=== PATIENT | female | born 1960 | race Caucasian/White ===

== ENCOUNTER → 2017-09-20 20:45 | Outpatient (CLI) | payer MEDICARE, SELFPAY | PROVIDERS: Family Provider Nurse Practitioner Family; PCP Nurse Practitioner Family; Visit Provider Nurse Practitioner Family | DX: G47.10 Hypersomnia, unspecified (principal) | CPT/HCPCS: 95810 ==

== ENCOUNTER → 2017-10-09 20:00 | Outpatient (CLI) | payer MEDICARE, SELFPAY | LOC: SL 20:16 | DX: G47.33 Obstructive sleep apnea (adult) (pediatric) (principal); G25.81 Restless legs syndrome | CPT/HCPCS: 95811 ==

== ENCOUNTER 2020-09-22 07:04 | Day surgery (SDC) | payer MEDICARE, SELFPAY ==
[2020-09-02 13:00] VITALS: BMI 28.0
[2020-09-22] VITALS (7 sets, daily range): BP systolic 135–149; BP diastolic 69–79; PULSE 52–64; RESP 16; TEMP 36.4–36.7; O2SAT 95–99; BMI 27.8
[2020-09-22] MEDS: Lactated Ringers 1,000 ML 100 ML IV (07:15)
--- NOTE | 2020-09-22 07:36 | PCM.HP.BLA ---
History and Physical Date of Service: 09/02/20 MR#:[id number]:[id number]: VLADIMIR ARANA [facility] #:[id number]:1960 Provider:Avani Rocha/Sex: 59/F [facility] Int[facility] Vital Signs 09/02/20 13:00 Height 5 ft 3 in Weight: 158 lb 4 oz BMI 28.0 BP 146/81 H Blood Pressure Location Rt brachial Position Sitting Respiration 18 Pulse 71 Pulse Source NIBP Temp 97.9 F Temp Source Temporal Pulse Oximetry (%) 97 Oxygen Delivery Method room air Intake Visit Reasons: CSCOPE, CARDIAC HX Chief Complaint: colonoscopy, history of colon polyps Resaw Carriage Operator Required: No Is patient in pain?: No Allergies amoxicillin [From Augmentin] Allergy (Mild, Verified 09/02/20 13:01) hives clavulanic acid [From Augmentin] Allergy (Mild, Verified 09/02/20 13:01) hives sulfamethoxazole [From Bactrim] Allergy (Mild, Verified 09/02/20 13:01) hives trimethoprim [From Bactrim] Allergy (Mild, Verified 09/02/20 13:01) hives Medications aspirin 81 mg tablet,delayed release 81 mg PO DAILY 09/02/20 [History Confirmed 09/02/20] bupropion HCl 150 mg tablet,12 hr sustained-release 150 mg PO DAILY ea 09/02/20 [History Confirmed 09/02/20] calcium 250 mg tablet 250 mg PO QDAY tab 09/02/20 [History Confirmed 09/02/20] calcium carbonate-vitamin D3 250 mg-125 unit tablet 1 tab PO DAILY 09/02/20 [History Confirmed 09/02/20] cholecalciferol (vitamin D3) 1,250 mcg (50,000 unit) capsule 1,250 mcg PO BID cap 09/02/20 [History Confirmed 09/02/20] famotidine 20 mg tablet 20 mg PO BID 09/02/20 [History Confirmed 09/02/20] loratadine 10 mg tablet 10 mg PO DAILY 09/02/20 [History Confirmed 09/02/20] magnesium 250 mg tablet 250 mg PO DAILY 09/02/20 [History Confirmed 09/02/20] metformin 500 mg tablet mg PO 09/02/20 [History Confirmed 09/02/20] metoprolol succinate 25 mg tablet,extended release 24 hr mg PO 09/02/20 [History Confirmed 09/02/20] paroxetine HCl 40 mg tablet mg PO 09/02/20 [History Confirmed 09/02/20] rosuvastatin 20 mg tablet mg PO 09/02/20 [History Confirmed 09/02/20] Is last menstrual period known: No Post menopausal: Yes Patient : No PFSH Medical History Anxiety and depression Back pain CAD (coronary artery disease) CHF (congestive heart failure) Congenital hearing loss Diabetes Dyslipidemia GERD (gastroesophageal reflux disease) Hemorrhoid HTN (hypertension) Myocardial infarction Neuropathy NSTEMI (non-ST elevated myocardial infarction) Sleep apnea Takotsubo cardiomyopathy Surgical History History of amputation of left thumb History of appendectomy History of cardiac catheterization History of colonoscopy (~2013) History of foot surgery History of myringotomy History of partial hysterectomy Family History (Updated 09/02/20 @ 13:00 by Audrey Danielle) Father Heart disease Myocardial infarction Seizures Hypertension Mother Diabetes CVA (cerebral vascular accident) Breast cancer Hypertension Myocardial infarction Sister Hypertension Diabetes Brother Diabetes Hypertension Social History (Updated 09/02/20 @ 13:00 by Audrey Danielle) Smoking Status: Light Smoker (<10/day) HPI HPI HPI: VLADIMIR ARANA, is a 59 F who presents to the office today with need to schedule screening colonoscopy. They are referred for surgical consultation from Dr. Garza. Patient has had prior colonoscopy she estimates 7 to 10 years ago. The results of prior scope were: Polyps, however the final pathology is unavailable given this was done at outside facility. Patient states that a recommended follow-up interval was never given. Patient has no personal history of colon cancer, inflammatory bowel disease, or diverticulitis. Patient has family history of colon cancer in 2 maternal uncles (diagnosed in their 70s). She describe their bowel habits as normal/regular. However, she does admit to a history of hemorrhoidal disease and notes occasional bright red blood with stools. During these times she experiences associated pain/itching. Patient has a moderately complex CV history. She carries diagnoses of atherosclerotic heart disease, prior [place], and CHF. She reports that she had a heart catheterization in 2018, however, she did not require stents. Her last visit with her lan/wan engineer, Dr. Bosch, was February 2020. She summarizes that they were pleased with her cardiac function at that time. Patient also has a history of obstructive sleep apnea, and endorses faithful compliance with CPAP. ROS General General: Yes fatigue; No weight change, appetite, colon cancer, breast cancer or weakness HEENT HEENT: No difficulty swallowing, eye injury, eye surgery, swollen glands or hoarseness Endo Endocrine: Yes diabetes mellitus; No thyroid disease, thyroid cancer, Hair loss, heat intolerance or cold intolerance Musc Musculoskeletal: Yes back problems; No arthritis, rheumatoid arthritis, gout or joint pain Cardio Cardiovascular: Yes high blood pressure and heart attack; No murmur, pacemaker, heart disease, atrial fibrillation, heart stent, palpitations, shortness of breat with exertion or chest pain Psych Psychiatric: Yes depression and anxiety; No hearing voices Resp Respiratory: No shortness of breath, Yes sleep apnea, No cough, No COPD, No asthma, No emphysema and No wheezing Gastro Gastrointestinal: No abdominal pain, No nausea or vomiting, No diarrhea, No constipation, Yes blood in stool, Yes acid reflux, Yes hemorrhoids, No ulcers, No gallbladder problem and No black,tarry stools [place] Hematologic: Yes blood thinners, No blood disorders, No bleeding, No anemia and No blood clots Neuro Neurologic: No weakness Exam Const General: cooperative, healthy appearing, comfortable, no acute distress and well developed Nutritional Appearance: well nourished Orientation: alert and oriented x3 HENMT Head: normocephalic and atraumatic Resp Effort & Inspection: normal respiratory effort, able to speak in complete sentences and no respiratory distress Auscultation: wheezes expiratory wheezes (Faint on left base) Cardio Rate: regular rate Rhythm: regular rhythm Heart Sounds: S1 normal and S2 normal GI Inspection: non-distended, scar (umbilical) and no visible herniation Palpation: soft, no hernias and nontender Assessment and Plan Assessment and Plan (1) Colon polyps: Status: Acute Qualifiers: Colon location: unspecified part of colon Colon polyp type: unspecified Qualified Code(s): K63.5 - Polyp of colon Plan Details Additional Comments: Patient has history of colonic polyps. She states her last surveillance endoscopy was approximately 7 to 10 years ago. She is having occasional bright red blood per rectum, however, temporally this seems related to hemorrhoid problems as she experiences concomitant pain/itching. Plan will be to complete colonoscopy on 09/22/2020 under local MAC. Pre-? procedure prep discussed and paper instructions provided. Patient is also made aware that she will need to have a electric mule driver with her the day of the procedure. 09/22/2020 I have examined the patient the following changes are noted: Patient no longer having bright red blood per rectum. She notes that her bowel prep went uneventfully and output has now been clear over the last couple bowel movements. Neither she nor her have any further questions we will plan to proceed with colonoscopy as above.
[2020-09-22 07:45] LABS: Bedside Glucose 140 mg/dL (70-110)
--- NOTE | 2020-09-22 08:15 | COLBX_PTH ---
PATIENT: VLADIMIR ARANA LOC: EN U#:[id number] AGE/SX: 59/F ROOM: RE09/22/[address]: Dr. Juan Moreau MD : 1960 BED: DIS: 09/22/2020 SPEC #: [id number] RECD: 09/22/20 11:42 STATUS: ELIZABETH VÍCTOR #: [id number] DESIREE: 09/22/20 08:[address]: Juan Moreau DEPT: SURGICAL PATHOLOGY RECD BY: Trixie Gold ENTERED: 09/22/20 12:32 SP TYPE: COLON BX OTHR DR: Moon Stockton, BOND WRITER-C [facility] Tissues: Descending colon Procedures: Surgery Specimen Level IV HEADER OPERATION: Colonoscopy (MAC) PRE-OP DIAGNOSIS: History colon polyps TISSUE SUBMITTED: Descending polyp MICROSCOPIC DIAGNOSIS Descending colon polyp, biopsy: Tubular adenoma. ALISON:jarret 09/23/2020 MICROSCOPIC DESCRIPTION Slides are reviewed. GROSS DESCRIPTION Received in fixative is one container labeled with the patient's name and designated descending polyp. The specimen consists of a samayoa-pink polyp measuring 0.5 x 0.5 x 0.3 cm. The specimen is totally submitted in one cassette. / SJ:jarret 09/22/20 TC:1 CPT: 87137
--- NOTE | 2020-09-26 09:49 | OP.CCLET_ITS ---
09/26/2020 Vivian Garza [facility] Re : [facility] This procedure was performed on September. My impressions and recommendations are as follows: Impressions : - Diverticulosis in the sigmoid colon. - One 1 mm, non-bleeding polyp in the descending colon, removed with a hot snare. Resected and retrieved. - Internal hemorrhoids. - Moderate diverticulosis in the sigmoid colon. There was no evidence of diverticular bleeding. [All Maneuvers]. Recommendations : - Discharge patient to home (ambulatory). - Resume regular diet. - Repeat colonoscopy in 5 years for adenoma surveillance. - Continue present medications. My findings are described in the full procedure note, which is enclosed. If I can be of further assistance, please feel free to contact me at Doctor phone number(s): , Work: . Sincerely, Juan Moreau MD 09/22/2020 9:46:01 AM This report has been signed electronically.
--- NOTE | 2020-09-26 09:49 | OP.COLON_ITS ---
Patient Name: Robyn Rocha Procedure Date: 09/22/2020 7:45 AM Date of : 1960 Age: 59 Procedure: Colonoscopy Indications: High risk colon cancer surveillance: Personal history of colonic polyps, Surveillance: Personal history of colonic polyps (unknown histology) on last colonoscopy more than 5 years ago Providers: Juan Moreau MD Referring MD: Vivian Garza [facility] Medicines: Monitored Anesthesia Care, See the Anesthesia note for documentation of the administered medications Patient Profile: Refer to note in patient chart for documentation of history and physical. Last Colonoscopy: 7-10 years ago. Complications: No immediate complications. Procedure: Pre-Anesthesia Assessment: - Monitored anesthesia care under the supervision of a TOP STITCHER was determined to be medically necessary for this procedure based on review of the patient's medical history, medications, and prior anesthesia history. After I obtained informed consent, the scope was passed under direct vision. Throughout the procedure, the patient's blood pressure, pulse, and oxygen saturations were monitored continuously. The colonoscope was introduced through the anus and advanced to the cecum, identified by appendiceal orifice and ileocecal valve. The colonoscopy was technically difficult and complex due to poor bowel prep. Successful completion of the procedure was aided by lavage. The colonoscopy was performed with moderate difficulty due to multiple diverticula in the colon. Successful completion of the procedure was aided by applying abdominal pressure. The colonoscopy was technically difficult and complex due to a tortuous colon. Successful completion of the procedure was aided by applying abdominal pressure. Scope In: 8:02:45 AM Scope Withdrawal Time 0 hours 32 minutes 44 seconds Scope Out: 9:24:15 AM Total Procedure Duration Time 1 hour 21 minutes 30 seconds Findings: Many medium-mouthed diverticula were found in the sigmoid colon. A 1 mm, non-bleeding polyp was found in the descending colon. The polyp was pedunculated. The polyp was removed with a hot snare. Resection and retrieval were complete. Estimated blood loss: none. Internal hemorrhoids were found during retroflexion. The hemorrhoids were Grade I (internal hemorrhoids that do not prolapse). Estimated blood loss was minimal. Impression: - Diverticulosis in the sigmoid colon. - One 1 mm, non-bleeding polyp in the descending colon, removed with a hot snare. Resected and retrieved. - Internal hemorrhoids. - Moderate diverticulosis in the sigmoid colon. There was no evidence of diverticular bleeding. [All Maneuvers]. Recommendation: - Discharge patient to home (ambulatory). - Resume regular diet. - Repeat colonoscopy in 5 years for adenoma surveillance. - Continue present medications. Procedure Code(s): --- Professional --- 30574, Colonoscopy, flexible; with removal of tumor(s), polyp(s), or other lesion(s) by snare technique Diagnosis Code(s): --- Professional --- K64.0, First degree hemorrhoids D12.4, Benign neoplasm of descending colon Z86.010, Personal history of colonic polyps K57.30, Diverticulosis of large intestine without perforation or abscess without bleeding CPT copyright 2017 [employer]. All rights reserved. The codes documented in this report are preliminary and upon skoog operator review may be revised to meet current compliance requirements. Juan Moreau MD 09/22/2020 9:46:01 AM This report has been signed electronically. Number of Addenda: 0 Note Initiated On: 09/22/2020 7:45 AM
== END 2020-09-22 10:20 ==
LOC: EN 07:04 → AC 07:08
PROVIDERS: Visit Provider Surgery
PROC: 0DJD8ZZ Inspection of Lower Intestinal Tract, Via Natural or Artificial Opening Endoscopic (ICD-10-PCS; CPT 45378; principal; 2020-09-22 08:10)
DX: D12.4 Benign neoplasm of descending colon (principal); K57.30 Diverticulosis of large intestine without perforation or abscess without bleeding; K64.0 First degree hemorrhoids; Z86.010 Personal history of colon polyps; F41.9 Anxiety disorder, unspecified; F32.9 Major depressive disorder, single episode, unspecified; I25.10 Atherosclerotic heart disease of native coronary artery without angina pectoris; I11.0 Hypertensive heart disease with heart failure; I50.9 Heart failure, unspecified; E11.9 Type 2 diabetes mellitus without complications; E78.5 Hyperlipidemia, unspecified; K21.9 Gastro-esophageal reflux disease without esophagitis; F17.200 Nicotine dependence, unspecified, uncomplicated; G47.33 Obstructive sleep apnea (adult) (pediatric); Z79.899 Other long term (current) drug therapy; Z79.84 Long term (current) use of oral hypoglycemic drugs
CPT/HCPCS: 45380; 82962; 88305; J7120; J2405

== ENCOUNTER → 2023-12-24 | Outpatient (CLI) | payer MEDICARE, SELFPAY ==
--- NOTE | 2023-12-24 13:58 | BI_ITS ---
MAMMOGRAPHY - BILATERAL SCREENING REASON FOR EXAM: Female, 62 years old. Routine annual screening examination. PERTINENT HISTORY: Mother with breast cancer. TECHNIQUE: Digital bilateral breast mark anthony (3D mammographic acquisition) in the CC and MLO projections. 2-D mediolateral oblique (MLO) and craniocaudad (CC) views of both breasts were obtained. CAD: Full Field Digital Mammography with Computer Added Detection was performed. COMPARISON: Comparison is made with prior study dated November 17, 2015 and prior outside examination of November 21, 2022. FINDINGS: Breast Composition: The breasts are heterogeneously dense, which may obscure small masses. There are no dominant masses or suspicious calcifications. Stable asymmetry of breast tissue or more breast tissue is seen in the retroareolar areolar region of the right breast as compared to the left side. No other significant abnormalities are identified. There has been no significant change since the prior study. BI/SCRN MAMM (CAD)W/MARK ANTHONY BILAT IMPRESSION: Stable bilateral screening mammogram. Yearly follow-up mammogram recommended. (A) ASSESSMENT CATEGORY: BIRADS Category 2: Benign. A letter regarding these results will be sent to the patient by the facility within 30 days. Approximately 10% of breast cancers are not detected by mammography. A normal mammogram should not delay biopsy of a clinically suspicious abnormality. [id number] Electronically Signed: Troy Villatoro MD at 14:43 EST ,
== END | disposition home or self-care (01) ==
PROVIDERS: PCP Family Medicine; Referring Provider Family Medicine; Visit Provider Family Medicine
DX: Z12.31 Encounter for screening mammogram for malignant neoplasm of breast (principal); Z80.3 Family history of malignant neoplasm of breast
CPT/HCPCS: 77063; 77067

== ENCOUNTER 2024-11-24 05:55 | Day surgery (SDC) | payer MEDICARE, SELFPAY ==
[2024-11-19 09:11] LABS: Hematocrit 40.8 % (37-47); Hemoglobin 13.5 g/dL (12.0-15.0); Immature Granulocytes Count 0.030 X10^3/uL (0.0-0.0); Mean Corp Hgb Conc 33.1 g/dL (32-36); Mean Corpuscular Volume 92.3 fL (81-99); Mean Platelet Vol. 10.1 fl (6.2-12.0); NRBC Flagged by Analyzer 0 % (0-5); Platelet Count 267 K/mm3 (150-450); RBC Distribution Width CV 11.7 % (11.6-14.6); RBC Distribution Width SD 39.7 fl (35.1-43.9); Red Blood Count 4.42 M/mm3 (4.2-5.4); White Blood Count 9.3 K/mm3 (4.4-11.0)
--- NOTE | 2024-11-19 12:40 | PAT.ANESEVAL ---
Pre-Assessment Diagnosis/Proposed Procedure Planned Operative Procedure(s): RIGHT PAROITIDECTOMY Anesthesia History Anesthesia History - potato chip maker: Anesthesia History - potato chip maker Hx Hospitalization No 11/18/24 08:44 Any Problems With Anesthesia No 11/18/24 08:44 Cholinesterase deficiency No 11/18/24 08:44 You/Your Family Experience No 11/18/24 08:44 fever (hyperthermia) with Relationship Recent Exposure to Contagious Disease Does patient have nerve No 11/18/24 08:44 stimulator Patient instructed to have device shut off --Does patient have Pacemaker or ICD? When Was Last Pacemaker Check QUESTION #4 FULL TEXT: You/Your Family Experience fever (hyperthermia) with Anesthesia Last Oral Intake Last Oral intake: Last Oral Intake NPO since Meds taken in AM with sips of water? Meds patient instructed to take am of surgery PONV PONV - potato chip maker: PONV - potato chip maker Female Yes 11/18/24 08:44 HX of Motion Sickness Yes 11/18/24 08:44 HX of N/V After Surgery No 11/18/24 08:44 Non-Smoker No 11/18/24 08:44 Duration of Surgery greater Yes 11/18/24 08:44 than 60 minutes Number of Risk Factors 3 11/18/24 08:44 PONV Score Moderate Risk 11/18/24 08:44 Height & Weight Height & Weight: Anesthesia: Height & Weight Height 5 ft 3 in 09/22/20 07:33 Respiratory Assessment Respiratory Assessment - potato chip maker: Respiratory Tract Infection Hx - potato chip maker Hx Respiratory Tract Infection No 11/18/24 08:44 STOP Sleep Apnea STOP Sleep Apnea - potato chip maker: STOP Sleep Apnea - potato chip maker Hx Hypertension Yes: CONTROLLED WITH MEDS 11/18/24 08:44 Hx Sleep Apnea Yes 11/18/24 08:44 CPAP Yes 11/18/24 08:44 BIPAP No 11/18/24 08:44 Do you snore loudly (louder than talking or can be heard Do you often feel tired/ fatigued/ sleepy during daytime? Has anyone observed you stop breathing during sleep? STOP Results Positive 11/18/24 08:44 QUESTION #5 FULL TEXT : Do you snore loudly (louder than talking or can be heard through closed doors)? Tobacco Use History Tobacco Use History - potato chip maker: Tobacco Use History - potato chip maker Tobacco Use Smoking Status Former smoker 11/18/24 08:44 Hx Tobacco Use Yes 11/18/24 08:44 Years Smoking Packs Smoked per Day Smoking Cessation Date was Yes - quit smoking within 15 11/18/24 08:44 within the last 15 years years Hx Smoking Cessation Date 11/17/24 11/18/24 08:44 Hx Smoking Cessation Counseling Hematologic Medial History Hematologic Hx - potato chip maker: Hematologic Medical Hx - tomato paste maker Hx of Blood Transfusion No 11/18/24 08:44 Hx of Transfusion in last 3 No 11/18/24 08:44 Months Date of Last Transfusion (if within last 3 months) Ever experience any problems No 11/18/24 08:44 with transfusion(s)? Specify any problems Hx of Preganancy in last 3 No 11/18/24 08:44 Months Nurse Filling Out Transfusion [id number] 11/18/24 08:44 & Questions: Date: 11/18/24 11/18/24 08:44 Time: 08:49 11/18/24 08:44 Patient unable to answer at this time (ie. confused, unrespo /Reproduction History /Reproductive History - potato chip maker: /Reproductive Hx- potato chip maker Hx Now Gestational Age (in weeks): EDC: Hx Hx Para Hx Section SAB PFSH Medical History (Updated 11/18/24 @ 08:54 by Elias Oconnor) Blackout Wears hearing aid Loss of hearing Wears dentures Wears glasses Depression Anxiety Diabetes High cholesterol Restless legs Seizures Gastric reflux Smoker CPAP (continuous positive airway pressure) dependence Sleep apnea Shortness of breath on exertion Hypertension Cardiology follow-up encounter History of heart attack Back pain Sleep apnea Hemorrhoid Anxiety and depression Myocardial infarction Diabetes CHF (congestive heart failure) GERD (gastroesophageal reflux disease) CAD (coronary artery disease) Neuropathy Dyslipidemia NSTEMI (non-ST elevated myocardial infarction) Takotsubo cardiomyopathy HTN (hypertension) Congenital hearing loss Home Medications ?Medication ?Instructions ?Recorded ?Last Taken ?Type aspirin 81 mg tablet,delayed 81 mg PO DAILY 09/02/20 11/16/24 History release bupropion HCl 150 mg tablet,12 hr 150 mg PO DAILY 09/02/20 Unknown History sustained-release calcium 250 mg (as 1 tab PO DAILY 09/02/20 Unknown History carbonate)-vitamin D3 3.125 mcg (125 unit) tablet (Oyster Shell + D3) loratadine 10 mg tablet 10 mg PO DAILY 09/02/20 Unknown History magnesium 250 mg tablet 250 mg PO DAILY 09/02/20 Unknown History metformin 500 mg tablet 500 mg PO DAILY 09/02/20 Unknown History metoprolol succinate 25 mg 25 mg PO DAILY 09/02/20 Unknown History tablet,extended release 24 hr paroxetine HCl 40 mg tablet (Paxil) 40 mg PO DAILY 09/02/20 Unknown History rosuvastatin 20 mg tablet 20 mg PO QHS 09/02/20 Unknown History amlodipine 5 mg tablet 5 mg PO DAILY 11/18/24 Unknown History carvedilol 12.5 mg tablet 12.5 mg PO BID 11/18/24 Unknown History ezetimibe 10 mg tablet 10 mg PO DAILY 11/18/24 Unknown History lisinopril 40 mg tablet 40 mg PO DAILY 11/18/24 Unknown History Allergy/AdvReac Type Severity Reaction Status Date / Time amoxicillin (From Augmentin) Allergy Mild hives Verified 11/18/24 08:40 clavulanic acid (From Allergy Mild hives Verified 11/18/24 08:40 Augmentin) sulfamethoxazole (From Allergy Mild hives Verified 11/18/24 08:40 Bactrim) trimethoprim (From Bactrim) Allergy Mild hives Verified 11/18/24 08:40 gabapentin Allergy Other Verified 11/18/24 08:40 Family History (Updated 09/02/20 @ 13:00 by Audrey Danielle) Father Heart disease Myocardial infarction Seizures Hypertension Mother Diabetes CVA (cerebral vascular accident) Breast cancer Hypertension Myocardial infarction Sister Hypertension Diabetes Brother Diabetes Hypertension Surgical History (Updated 09/21/20 @ 10:07 by Shruthi Acevedo) Hx of tympanostomy History of colonoscopy (~2013) History of partial hysterectomy History of foot surgery History of amputation of left thumb History of cardiac catheterization History of myringotomy History of appendectomy Social History (Updated 09/02/20 @ 13:00 by Audrey Danielle) Smoking Status: Former smoker Audit: Pertinent Findings Pertinent Findings Echo (EF%) pertinent findings: 04/06/2022. EF 55% ?5%. Consult pertinent findings: Cardiology office note 06/13/2024. Halie Vallejo. Takotsubo cardiomyopathy. Recovered EF. Euvolemic. Asymptomatic. Coronary artery disease in [place] artery. Mild to moderate disease. Continue risk factor modification. Hypertension. Currently suboptimal control we will recheck in 1 month. Sleep apnea. Obesity. Preop cardiovascular exam. Functional capacity greater than 4 METS. No significant coronary artery disease and preserved EF. Low risk for perioperative cardiovascular events. Proceed with planned surgery. Recommendation Anesthesia Recommendation Anesthesia recommendation: OPTIMIZED for anesthesia
[2024-11-24] VITALS (20 sets, daily range): BP systolic 102–151; BP diastolic 52–84; PULSE 51–75; RESP 12–16; TEMP 36–36.4; O2SAT 69–100; BMI 26.6
[2024-11-24] MEDS: Lactated Ringers 1,000 ML 15 ML IV (06:59)
--- NOTE | 2024-11-24 07:06 | PCM.PRE.AN2 ---
ASA Classification* ASA Classification ASA Classification: 3 Assessment & Plan Anesthesia* Anesthesia Assessment Anesthesia Assessment: Discussed sedation and/or anesthesia options, risks, benefits, and alternatives with patient/parents/legal guardian/POA. Questions invited. The patient/parents/legal guardian/POA seems to understand and agrees to proceed with anesthesia plan. Reviewed the physical assessment, medical history, allergy history and patient home medications list prior to surgery/procedure/anesthetic and documented any changes. Performed airway and anesthesia risk assessments. Anesthesia Type Anesthesia Type: General (Consider GlideScope intubation.) History Source History Obtained from:: Patient and Chart Anesthesia Focused Assessment* Temperature: 97.5 F Pulse Rate: 51 Blood Pressure: 120/52 Respiratory Rate: 16 Pulse Ox: 97 Oxygen Delivery Method: Room Air Airway Assessment Mouth opens: >3 cm Mallampati Score: IV Teeth Condition: Dentures (Patient has full dentures. 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 When Was Last Pacemaker Check QUESTION #4 FULL TEXT: You/Your Family Experience fever (hyperthermia) with Anesthesia Last Oral Intake Last Oral intake: Last Oral Intake NPO since 20:00 11/24/24 06:54 Meds taken in AM with sips of water? 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 Female Yes 11/18/24 08:44 HX of Motion Sickness Yes 11/18/24 08:44 HX of N/V After Surgery No 11/18/24 08:44 Non-Smoker No 11/18/24 08:44 Duration of Surgery greater Yes 11/18/24 08:44 than 60 minutes Number of Risk Factors 3 11/18/24 08:44 PONV Score Moderate Risk 11/18/24 08:44 Height & Weight Height & Weight: Anesthesia: Height & Weight Height 5 ft 3 in 11/24/24 06:54 Weight: 68.4 kg 11/24/24 06:54 Body Mass Index (BMI) 26.6 11/24/24 06:54 Respiratory Assessment Respiratory Assessment - excavating supervisor: Respiratory Tract Infection Hx - excavating supervisor Hx Respiratory Tract Infection No 11/18/24 08:44 STOP Sleep Apnea STOP Sleep Apnea - excavating supervisor: STOP Sleep Apnea - excavating supervisor Hx Hypertension Yes: CONTROLLED WITH MEDS 11/18/24 08:44 Hx Sleep Apnea Yes 11/18/24 08:44 CPAP Yes 11/18/24 08:44 BIPAP No 11/18/24 08:44 Do you snore loudly (louder than talking or can be heard Do you often feel tired/ fatigued/ sleepy during daytime? Has anyone observed you stop breathing during sleep? STOP Results Positive 11/18/24 08:44 QUESTION #5 FULL TEXT : Do you snore loudly (louder than talking or can be heard through closed doors)? 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 Specify any problems Hx of Preganancy in last 3 No 11/18/24 08:44 Months Nurse Filling Out Transfusion [email or web address] 11/18/24 08:44 & Questions: Date: 11/18/24 11/18/24 08:44 Time: 08:49 11/18/24 08:44 Patient unable to answer at this time (ie. 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 supervisor Hx Now Gestational Age (in weeks): EDC: Hx Hx Para Hx Section SAB Active Medications Active Medications: Current Medications Generic Name Dose Route Start Last Admin Trade Name Freq PRN Reason Stop Dose Admin Clindamycin Phosphate 900 mg in 50 mls @ 75 mls/hr 11/24/24 07:30 Cleocin IV 11/24/24 08:09 INTRAOP ONE Lactated Ringer's 1,000 mls @ 15 mls/hr 11/24/24 06:15 11/24/24 06:59 IV 15 mls/hr .Q48H PATTI Administration PFSH Medical History Blackout Wears hearing aid Loss of hearing Wears dentures Wears glasses Depression Anxiety Diabetes High cholesterol Restless legs Seizures Gastric reflux Smoker CPAP (continuous positive airway pressure) dependence Sleep apnea Shortness of breath on exertion Hypertension Cardiology follow-up encounter History of heart attack Back pain Sleep apnea Hemorrhoid Anxiety and depression Myocardial infarction Diabetes CHF (congestive heart failure) GERD (gastroesophageal reflux disease) CAD (coronary artery disease) Neuropathy Dyslipidemia NSTEMI (non-ST elevated myocardial infarction) Takotsubo cardiomyopathy HTN (hypertension) Congenital hearing loss Home Medications ?Medication ?Instructions ?Recorded ?Last Taken ?Type aspirin 81 mg tablet,delayed 81 mg PO DAILY 09/02/20 11/16/24 History release bupropion HCl 150 mg tablet,12 hr 150 mg PO DAILY 09/02/20 11/24/24 History sustained-release calcium 250 mg (as 1 tab PO DAILY 09/02/20 11/23/24 History carbonate)-vitamin D3 3.125 mcg (125 unit) tablet (Oyster Shell + D3) loratadine 10 mg tablet 10 mg PO DAILY 09/02/20 11/23/24 History magnesium 250 mg tablet 250 mg PO DAILY 09/02/20 11/23/24 History metformin 500 mg tablet 500 mg PO DAILY 09/02/20 11/23/24 History metoprolol succinate 25 mg 25 mg PO DAILY 09/02/20 11/23/24 History tablet,extended release 24 hr paroxetine HCl 40 mg tablet (Paxil) 40 mg PO DAILY 09/02/20 11/24/24 History rosuvastatin 20 mg tablet 20 mg PO QHS 09/02/20 11/23/24 History amlodipine 5 mg tablet 5 mg PO DAILY 11/18/24 11/24/24 History carvedilol 12.5 mg tablet 12.5 mg PO BID 11/18/24 11/24/24 History ezetimibe 10 mg tablet 10 mg PO DAILY 11/18/24 Unknown History lisinopril 40 mg tablet 40 mg PO DAILY 11/18/24 11/23/24 History Allergy/AdvReac Type Severity Reaction Status Date / Time amoxicillin (From Augmentin) Allergy Mild hives Verified 11/24/24 06:50 clavulanic acid (From Allergy Mild hives Verified 11/24/24 06:50 Augmentin) sulfamethoxazole (From Allergy Mild hives Verified 11/24/24 06:50 Bactrim) trimethoprim (From Bactrim) Allergy Mild hives Verified 11/24/24 06:50 gabapentin Allergy Other Verified 11/24/24 06:50 Family History Father Heart disease Myocardial infarction Seizures Hypertension Mother Diabetes CVA (cerebral vascular accident) Breast cancer Hypertension Myocardial infarction Sister Hypertension Diabetes Brother Diabetes Hypertension Surgical History Hx of tympanostomy History of colonoscopy (~2013) History of partial hysterectomy History of foot surgery History of amputation of left thumb History of cardiac catheterization History of myringotomy History of appendectomy Social History Smoking Status: Former smoker Review of Systems (Anesthesia) ROS Narrative System reviewed and no additional complaints, except as documented.
--- NOTE | 2024-11-24 07:30 | MASS_PTH ---
PATIENT: VLADIMIR ARANA LOC: [facility] [place] U#:[id number] AGE/SX: 63/F ROOM: RE11/24/[address]: Dr. Bayron Moreland MD : 1960 BED: DIS: 11/24/2024 SPEC #: [id number] RECD: 11/24/24 14:09 STATUS: ELIZABETH REIda #: [id number] DESIREE: 11/24/24 07:[address]: Bayron Moreland DEPT: SURGICAL PATHOLOGY RECD BY: Pawel Villatoro ENTERED: 11/24/24 16:21 SP TYPE: Mass OTHR DR: Dr. López Diamond, DO Tissues: A - Parotid gland, NOS Procedures: Surgery Specimen Level V HEADER OPERATION: Parotidectomy, Muscle flap, Fat graft PRE-OP DIAGNOSIS: Benign neoplasm of parotid gland TISSUE SUBMITTED: A- Right parotid mass MICROSCOPIC DIAGNOSIS A. Right parotid, mass, excision: * Warthin tumor, focally involving the surgical margin. * Three benign lymph nodes. MICROSCOPIC DESCRIPTION Slides are reviewed. GROSS DESCRIPTION A. Received in formalin labeled with the patient's name and date of . Designated as right parotid mass is a 5.5 g, 3.2 x 2.2 x 2.0 cm samayoa-pink to yellow, soft and lobulated, focally cauterized salivary gland devoid of orientation. The external surfaces are inked black. Sectioning reveals a 1.6 x 1.5 x 1.3 cm samayoa-pink, well-circumscribed, soft mass with a possible capsule, abutting the external ink. The remainder of the cut surfaces are samayoa-yellow and lobulated. Definitive lymph nodes are not identified. Entirely submitted in 8 cassettes. TN 11/24/2024 CPT:02745
--- NOTE | 2024-11-24 07:37 | DCINST_ITS ---
Discharge Instructions DC O2, CPAP, BIPAP needs Home O2 Discharge instructions: No Dressing / Incision Discharge Activity: Return to Normal Activity Dressing / Incision Call your doctor if your incision/area has: Sudden Increased Bleeding Additional Dressing/Incision Instructions:: record MARGOT output. mupirocin to incision three times daily. wear abdominal binder. Follow Up Care Please Follow Up With: Bayron Moreland MD Test Results: Test results from this visit will be discussed in further detail at your follow- up appointment, if applicable. Discharge Plan Admission Attending Provider: Bayron Moreland Primary Care Provider: López Diamond Instructions Print Language: Canadian Discharge Orders/Prescriptions Prescriptions: No Action metformin 500 mg tablet 500 mg PO DAILY bupropion HCl 150 mg tablet sustained-release 12 hr 150 mg PO DAILY aspirin 81 mg tablet,delayed release (DR/EC) 81 mg PO DAILY magnesium 250 mg tablet 250 mg PO DAILY metoprolol succinate 25 mg tablet extended release 24 hr 25 mg PO DAILY paroxetine HCl [Paxil] 40 mg tablet 40 mg PO DAILY loratadine 10 mg tablet 10 mg PO DAILY rosuvastatin 20 mg tablet 20 mg PO QHS calcium carbonate-vitamin D3 [Oyster Shell + D3] 250-125 mg-unit tablet 1 tab PO DAILY carvedilol 12.5 mg tablet 12.5 mg PO BID amlodipine 5 mg tablet 5 mg PO DAILY lisinopril 40 mg tablet 40 mg PO DAILY ezetimibe 10 mg tablet 10 mg PO DAILY Referrals / Follow Up: López Diamond DO [Primary Care Provider, Family Practice] Disposition Disposition (needs filled in before D/C Order can be placed): Home, Self Care
--- NOTE | 2024-11-24 07:42 | PCM.OPRPT ---
Operative Report (Standard) Operative Information Date of Procedure: 11/24/24 Pre-Operative Diagnosis: 1. right parotid mass 2. parotidectomy defect Post-Operative Diagnosis: 1. right parotid mass 2. parotidectomy defect Surgery/Procedure Performed: 1. right superficial parotidectomy with facial nerve dissection 2. superficial musculoaponeurotic system flap, right face 3. abdominal fat graft operating room surgical technician: Yes Insurance Follow Up Representative: Kiley Wolfe Tasks completed by first helper: Opening & closing, Harvesting grafts, Dissecting tissue, Removing tissue and Hemostasis: Electrocautery Type of Anesthesia: General RN Documented Start/Stop Times: Operation Date: 11/24/24 07:30 Case Time Into Pre-Op 11/24/24 06:08 Anesthesia Start 11/24/24 07:50 Into Room 11/24/24 07:50 Procedure Start 11/24/24 08:33 Procedure End 11/24/24 12:30 Anesthesia End 11/24/24 12:39 Out of Room 11/24/24 12:39 Into Recovery 11/24/24 12:42 Procedure Start Time: 08:30 Procedure Stop Time: 12:30 Select all DRAINS/GRAFTS/IMPLANTS that apply: Drains Drain details: 15 fr MARGOT to neck Estimated Blood Loss: 10cc Specimen collected: Yes Description of specimen(s) removed: right superficial parotid Description of surgery: on the day of the procedure, after appropriate informed consent was obtained, the patient was brought to the operating room and placed in supine position on the operating room table.? she was placed under general endotracheal anesthesia by the anesthesiologist.? the endotracheal tube was secured.? facial nerve monitoring electrodes were placed in the right face.? the neck and abdomen were prepped and draped in sterile fashion.? a right sided modified alannah incision was made with a 15 blade.? the preauricular area was dissected with a metsenbaum scissor in the subcutaneous fat plane, 4cm anterior.? the superficial musculoaponeurotic system (SMAS) was incised just anterior to the tragus and dissected out anteriorly.? the SMAS flap was developed and joined with the platysma muscle inferiorly.? the tragal pointer was dissected with an iris scissor in a submucoperichondrial plane.? the inferior portion of the parotid was dissected off of the sternocleidomastoid with the bovie.? 1cm inferior and deep to the tragal pointer, the main trunk of the facial nerve was located with a ulloa dissector.? this was confirmed many times with the nerve monitor.? the pes anserinus was located and the inferior division was dissected.? each branch was isolated and left intact. the gland was removed from an inferior to superior dissection, until the superficial gland with the tumor was removed.? hemostasis was achieved.?? a 4cm transverse incision was made in the left lower quadrant.? the subcutaneous fat was dissected with a Metzenbaum scissor and a 8cm x 4 cm fat graft was harvested.? hemostasis was achieved with the bipolar, a ary was placed and the incision was closed with 4-0 vicryl and 4-0 maxon.?? the fat graft was placed in the parotidectomy defect and sutured at numerous points using 4-0 vicryl.? the SMAS flap was closed over the fat graft with 4-0 vicryl.? a 15 albanian MARGOT drain was placed and sutured.? the incision was closed with 4-0 vicryl and 5-0 nylon. she was awoken by the anesthesiologist and transferred to the PACU in stable condition. dr kiley wolfe was scrubbed for the entirety of the procedure and was critical in its completion. Surgical Findings: see above Complications Complications: No
[2024-11-24] MEDS: Midazolam 2 MG/2 ML Syringe IV (07:50)
[2024-11-24] MEDS: Lidocaine 1% (5 ml sdv) 5 ML Vial IV (07:57)
[2024-11-24] MEDS: Lidocaine 1% /Epi 1:100 (50ml) 50 ML VIAL (08:25)
[2024-11-24] MEDS: Lactated Ringers 2,000 ML 2000 ML IV (08:50)
[2024-11-24] MEDS: Mupirocin Ointment 22gm Tube 1 APPLIC (09:32)
[2024-11-24] MEDS: fentaNYL 100 MCG/2 ML Ampul 150 MCG IV (12:29)
--- NOTE | 2024-11-24 12:53 | PCM.POST.ANE ---
Anesthesia: Postop Eval I Current Vital Signs Temperature: 97.2 F Pulse Rate: 59 Blood Pressure: 112/67 Respiratory Rate: 12 Pulse Ox: 96 Oxygen Delivery Method: Nasal Cannula Oxygen Flow Rate (L/min): 8 Assessment Airway patent: Yes Spontaneous unlabored respirations: Yes Mental status: Asleep (pt with obstructed airway on arrival to pacu . 28 fr npa placed nwith ease ) nausea: No Vomiting: No Anesthesia Complication: No Fluid Hydration Crystalloid volume administer (ml): 1,800 Total IV fluid infused: 1,800 Progress Note Anesthesia document: Postop Eval 1 completed: Yes
--- NOTE | 2024-11-24 15:12 | SUR.PREOP ---
has had nasal airway in since arrival to PACU, alert enough now to ask for drink, nasal airway removed and treva ice chips
--- NOTE | 2024-11-24 16:42 | POSTOPAN2_ITS ---
Anesthesia Postop Eval I Sum Postop Eval Completion status Anesthesia document: Postop Eval 1 completed: Yes Anesthesia Postop Eval I Summary Anesthesia Postop Eval I Summary: Anesthesia Postop Eval I: Assessment Summary Airway patent Yes 11/24/24 12:57 MARKETING SUPPORT [email or web address].[email or web address] Spontaneous unlabored Yes 11/24/24 12:57 MARKETING SUPPORT SPECIALIST.[email or web address] respirations Mental status Asleep - pt with 11/24/24 12:57 MARKETING SUPPORT SPECIALIST.[email or web address] obstructed airway on arrival to pacu . 28 fr npa placed nwith ease nausea No 11/24/24 12:57 MARKETING SUPPORT SPECIALIST.[email or web address] Vomiting No 11/24/24 12:57 MARKETING SUPPORT [email or web address].[email or web address] Anesthesia Postop Eval I: Fluid Summary Crystalloid volume administer 1,800 11/24/24 12:57 MARKETING SUPPORT SPECIALIST.[email or web address] (ml) Colloids volume administered ( ml) Blood Product volume administered (ml) Total IV fluid infused 1,800 11/24/24 12:57 MARKETING SUPPORT [email or web address].[email or web address] Anesthesia Postop Eval I: Summary Notes Anesthesia Complication No 11/24/24 12:57 MARKETING SUPPORT [email or web address].[email or web address] Anesthesia Complication Comment: Post-operative progress note Anesthesia: Postop Eval II Evaluation Mental status: Awake and Calm Pain Level: 0 nausea: No Vomiting: No Complications Anesthesia Complication: No
--- NOTE | 2024-11-24 16:42 | PCM.POSTANE2 ---
Anesthesia Postop Eval I Sum Postop Eval Completion status Anesthesia document: Postop Eval 1 completed: Yes Anesthesia Postop Eval I Summary Anesthesia Postop Eval I Summary: Anesthesia Postop Eval I: Assessment Summary Airway patent Yes 11/24/24 12:57 CD REACTOR OPERATOR [email or web address] Spontaneous unlabored Yes 11/24/24 12:57 CD REACTOR OPERATOR [email or web address] respirations Mental status Asleep - pt with 11/24/24 12:57 CD REACTOR OPERATOR [email or web address] obstructed airway on arrival to pacu . 28 fr npa placed nwith ease nausea No 11/24/24 12:57 CD REACTOR OPERATOR HEAD.[email or web address] Vomiting No 11/24/24 12:57 CD REACTOR OPERATOR [email or web address] Anesthesia Postop Eval I: Fluid Summary Crystalloid volume administer 1,800 11/24/24 12:57 CD REACTOR OPERATOR [email or web address] (ml) Colloids volume administered ( ml) Blood Product volume administered (ml) Total IV fluid infused 1,800 11/24/24 12:57 CD REACTOR OPERATOR [email or web address] Anesthesia Postop Eval I: Summary Notes Anesthesia Complication No 11/24/24 12:57 CD REACTOR OPERATOR HEAD.[email or web address] Anesthesia Complication Comment: Post-operative progress note Anesthesia: Postop Eval II Evaluation Mental status: Awake and Calm Pain Level: 0 nausea: No Vomiting: No Complications Anesthesia Complication: No
== END 2024-11-24 16:38 | disposition home or self-care (01) ==
LOC: SDC 05:55 → AC 05:56
PROVIDERS: PCP Family Medicine; Referring Provider Otolaryngology; Visit Provider Otolaryngology
PROC: (CPT 42415; principal; 2024-11-24 07:00)
DX: D11.0 Benign neoplasm of parotid gland (principal); E11.9 Type 2 diabetes mellitus without complications; I10 Essential (primary) hypertension; E78.00 Pure hypercholesterolemia, unspecified; I25.10 Atherosclerotic heart disease of native coronary artery without angina pectoris; I25.2 Old myocardial infarction; Z79.82 Long term (current) use of aspirin; Z79.899 Other long term (current) drug therapy; Z87.891 Personal history of nicotine dependence
CPT/HCPCS: 42415; 15829; 15769; 36415; 82962; 85025; 88305; 88307; 93005; J2405